=== PATIENT | male | born 1930 | race Caucasian/White ===

== ENCOUNTER 2017-04-04 13:20 | Emergency (ER) | payer OTHER ==
[~2017-04-04] VITALS: Ht 175.3 cm; Wt 82.6 kg
[2017-04-04 13:20] VITALS: BP 135/79
--- NOTE | 2017-04-04 14:50 | NUR ---
CALLED IN THE [place], PATIENT IS NOT AROUND
== END 2017-04-04 15:18 | disposition left against medical advice (07) ==
LOC: ER 13:28
DX: Z53.21 Procedure and treatment not carried out due to patient leaving prior to being seen by health care provider (principal)
CPT/HCPCS: A4606; Z7610